=== PATIENT | male | born 1995 | race Caucasian/White ===

== ENCOUNTER 2023-09-07 20:02 | Emergency (ER) | payer OTHER, SELFPAY ==
--- NOTE | ~2023-09-07 | XR_ITS ---
EXAMINATION: XR CHEST CLINICAL INFORMATION: Chest pain COMPARISON: None available. TECHNIQUE: 2 views of the chest were obtained. FINDINGS: No significant abnormality is noted involving the heart, lungs, mediastinum or bony thorax. XR/XR chest 2V IMPRESSION: Unremarkable examination.
[2023-09-07 20:16] VITALS: BP 141/84; PULSE 108; RESP 18; TEMP 38.3; O2SAT 99; BMI 53.5
--- NOTE | 2023-09-07 20:16 | ECG_ITS ---
Test Reason : CHEST PAIN Blood Pressure : / mmHG Vent. Rate : 102 BPM Atrial Rate : 102 BPM P-R Int : 152 ms QRS Dur : 088 ms QT Int : 324 ms P-R-T Axes : 052 030 047 degrees QTc Int : 422 ms Sinus tachycardia Otherwise normal ECG No previous ECGs available Referred By: Omaira Martinez Electronically Signed By:MARZENA HUDSON
--- NOTE | 2023-09-07 20:16 | ED_ITS ---
HPI - General Adult General Chief complaint: Chest Pain Stated complaint: chest pains Time Seen by Provider: 09/07/23 23:29 Source: patient and family Mode of arrival: ambulatory Limitations: no limitations History of Present Illness HPI narrative: 27-year-old male with a history of obstructive sleep apnea and atrial fibrillation who presents emergency department for evaluation of rapid heart rate. Patient states that he developed a cold which she states consisted of a sore throat, rhinorrhea. Symptoms began yesterday. Today he states that he had a fever of 100 degrees F. he took he took long-acting Sudafed at 08:00 hours and did not take a 2nd dose. He states that at around 19:00 hours she walked down stairs and developed a fast heart rate. Patient has a smart watch he states that his heart rate was 130 and the highest that he documented was 150. He states that he then developed a tingly sensation in his left arm and then tingling in both fingers. He states that his tongue felt funny but he denied perioral numbness. Patient states that since being in the emergency department his heart rate is been a above 100. Patient contacted his sister who is a pediatric psychiatrist and she advised him to go to the emergency department to be evaluated for his symptoms. Patient does take metoprolol ER 50 mg daily. He states that he was not feeling well this morning he is uncertain if he took his morning dose. Related Data Home Medications Medication Instructions Recorded Confirmed metoprolol succinate 50 mg 50 mg PO DAILY 10/20/22 tablet,extended release 24 hr Previous Rx's Medication Instructions Recorded azithromycin 250 mg tablet See Rx Instructions PO .COMPLEX #6 10/20/22 tabs Allergies Allergy/AdvReac Type Severity Reaction Status Date / Time No Known Allergies Allergy Verified 09/07/23 20:16 Review of Systems 2 Review of Systems: Yes all other systems are reviewed and are negative [facility] Past Medical History [facility] Narrative: Past medical history: Obstructive sleep apnea, atrial fibrillation requiring cardioversion in the past. Social history: He denies tobacco use. He states that he rarely drinks alcohol and has not drank alcohol recently. He denies drug use. Social History Social History Patient Tobacco Use Status: Never used Tobacco Advance Directives: No Advance Directives Information Provided: No Physical Exam ED Vital Signs: Vital Signs - 24 hr 02/27/24 20:16 09/08/23 00:00 09/08/23 00:22 Temperature 101.0 F H 99.2 F Pulse Rate 108 H 92 Pulse Rate [Monitor] 95 Respiratory Rate 18 20 Blood Pressure 141/84 H 148/94 H Pulse Oximetry 99 100 Oxygen Delivery Method Room Air Room Air BMI result Body Mass Index 53.5 Vital signs revealed an elevated temperature of a 101 degrees F, elevated heart rate of 108 elevated blood pressure 141/84. Exam: General: Awake, alert in no distress, elevated BMI 53. 5, 194 kg Head: Normocephalic, atraumatic EENT: PERRL, Lids normal, sclera normal, conjunctiva normal, nose normal , ears normal, throat without erythema or exudates Neck: Supple, no adenopathy Lung: breath sounds symmetric, no wheezing, rales or rhonchi Chest: symmetric movement, nontender Heart: Tachycardic with regular rhythm, normal S1, S2 no murmurs or rubs Abdomen: soft, non-tender, nondistended, normal bowel sounds Back: no vertebral tenderness, no CVAT Extremities: no deformities, moves all extremities symmetrically Neuro: Awake, alert, oriented, normal speech, cranial nerves intact, moves all extremities symmetrically Psych: Pleasant, cooperative Course Course Course Narrative: This is a rapid medical exam: Additional HPI, ROS, PE not included below will be deferred to primary provider. Patient is a 27-year-old male with history of afib on metoprolol presenting to the ED with complaint of tachycardia, chest pain, URI symptoms. Reports HR was around 115-130 [employer]. Took pseudoephedrine at 8 this morning for his cold symptoms. HR in triage 106. Plan: EKG, labs, viral swabs, cxr Medications Administered Discontinued Medications Generic Name Dose Route Start Last Admin Trade Name Freq PRN Reason Stop Dose Admin Acetaminophen 975 mg 09/08/23 00:16 09/08/23 00:34 Acetaminophen 325 Mg Tablet PO 09/08/23 00:17 975 mg ONCE STA Administration Metoprolol Succinate 50 mg 09/08/23 00:03 09/08/23 00:34 Metoprolol Succinate Er 50 Mg Tab.Er.24h PO 09/08/23 00:04 50 mg ONCE ONE Administration Protocol Medical Decision Making Medical Decision Making MDM Narrative: 27-year-old male with a history of atrial fibrillation, obstructive sleep apnea who presents emergency department for evaluation of URI type symptoms x2 days with fever today with rapid heart rate with onset around 19:00 hours after you walk down stairs. Patient also had numbness and tingling in his left arm and in both hands with tingly sensation in his tongue but no perioral numbness. Patient has a smart watch and states that his highest heart rate that he documented was 150 and since being in the emergency department his heart rates been over 100. Differential diagnosis: ?Includes but is not limited to myocardial infarction, myocardial ischemia, palpitations, paroxysmal atrial fibrillation, electrolyte abnormalities, anemia Following evaluation was ordered: CBC, CMP, PT/INR, troponin, COVID-19, influenza, RSV, EKG Patient was initially treated with the following: Metoprolol succinate ER 50 mg orally, Tylenol 975 mg orally, cardiac monitoring, O2 saturation monitoring Course: 00:12 My interpretation patient's laboratory evaluation is as follows: CBC was normal. PT/INR was normal. Glucose elevated 142. ALT elevated 43. First troponin was less than 2.7. Chest x-ray revealed no acute abnormalities 12 EKG revealed a sinus tachycardia with no myocardial injury or ischemic pattern is noted. My impression is the patient's tachycardia may be secondary to fever and this triggered hyperventilation syndrome. I will repeat a 3 hour troponin to make sure that he has not had myocardial injury. Patient was given a dose of metoprolol ER 50 mg for his tachycardia. 01:55 Patient is feeling better after the above treatment, he has had no tachyarrhythmias noted on the monitor. Patient's symptoms are most likely secondary to viral syndrome and I did discuss this with him. Patient was advised to take a another dose of metoprolol at around noon time today and then to start taking his metoprolol again on his radiographs scheduled. He was given printed and verbal instructions and discharged home Admission/Observation Consideration of admission/observation: Escalation of care including admission/observation considered Lab Data [facility] Lab Attestation statement: I reviewed the patient's lab results. 09/07/23 20:33 09/07/23 20:33 Labs: Lab Results 09/07/23 09/07/23 09/08/23 Range/Units 20:32 20:33 00:27 WBC 10.1 (4.8-10.8) X10*3/uL RBC 5.05 (4.60-5.80) X10*6/uL Hgb 15.2 (14.0-18.0) g/dl Hct 44.0 (42.0-52.0) % MCV 87.1 (80.0-98.0) fL MCH 30.1 (27.0-33.0) pg MCHC 34.5 (31.0-36.0) g/dl RDW 12.7 (11.0-16.0) % Plt Count 282 (160-400) X10*3/uL MPV 9.0 L (9.4-12.4) fL Immature Gran % (Auto) 0.6 H (0.0-0.4) % Neut % (Auto) 78.8 H (45-73) % Lymph % (Auto) 10.7 L (20-40) % [place] % (Auto) 8.7 (2-11) % Eos % (Auto) 0.7 (0-4) % Baso % (Auto) 0.5 (0-2) % Lymph # (Auto) 1.1 L (1.2-4.9) X10*3/uL [place] # (Auto) 0.9 (0.1-1.2) X10*3/uL Eos # (Auto) 0.1 (0.0-0.4) X10*3/uL Baso # (Auto) 0.1 (0.0-0.2) X10*3/uL Abs Immat Gran (auto) 0.06 H (0.00-0.03) X10*3/uL Absolute Neuts (auto) 7.9 (2.0-8.3) x10*3/uL Absolute Nucleated RBC 0.000 (0.0-0.012) X10*3/uL Nucleated RBC % (auto) 0.0 (0.0-0.2) /100WBC PT 12.7 (11.1-13.3) SEC INR 1.0 (0.9-1.1) Sodium 138 (135-145) mmol/L Potassium 3.7 (3.3-5.1) mmol/L Chloride 103 (96-108) mmol/L Carbon Dioxide 25 (22-29) mmol/L Anion Gap 14 (12-20) BUN 9 (9-16) mg/dL Creatinine 1.06 (0.5-1.4) mg/dL Estim Creat Clear Calc 188.2 Estimated GFR > 60 Random Glucose 146 H (60-115) mg/dL Calcium 10.0 (8.4-10.2) mg/dL Total Bilirubin 0.4 (0.0-1.0) mg/dL AST 24 (5-37) U/L ALT 43 H (0-40) U/L Alkaline Phosphatase 71 (39-117) U/L Troponin I High Sens < 2.7 < 2.7 (<3.5-35.0) ng/L Total Protein 7.8 (6.5-8.0) g/dL Albumin 4.1 (3.5-5.0) g/dL Influenza Type A (PCR) NEGATIVE (Negative) Influenza Type B (PCR) NEGATIVE (Negative) RSV RNA Qual (PCR) NEGATIVE (Negative) SARS-CoV-2 RNA (RT-PCR) NEGATIVE (Negative) Independent Interpretation I performed an independent interpretation of an: EKG and Plain X-Ray Interpretation: My interpretation patient's 12 EKG done at 20:24 hours is as follows: Sinus tachycardia with a rate of 102, normal IL interval, QRS duration QTC interval, no ST segment elevation, no ST segment depression, no PACs, no PVCs, no T-wave abnormalities except for the sinus tachycardia this is a normal EKG. Radiology Impression Discussion of test interpretation with radiology: I have reviewed the radiologist's reading. Radiologist Impression: XR chest 2V IMPRESSION: Unremarkable examination. Dictated By: Gerardo Johnson MD Independent Historian Clinical information obtained from an independent historian. History obtained from or confirmed by: Other (Significant other) Chronic Conditions Patient?s care impacted by: Other (Obstructive sleep apnea, paroxysmal atrial fibrillation) Discharge Plan Discharge Clinical Impression: Heart palpitations, Atrial tachycardia, Viral syndrome, Fever Patient Disposition: Home, Self-Care Instructions: Viral Syndrome (ED), Heart Palpitations (ED), Hyperventilation (ED) Additional Instructions: When you arrived in the emergency department you did have a fever of 101 degrees F, your repeat temperature when I saw you was still slightly high at 99.2. Your 12 EKG was normal. Your chest x-ray was normal. Your complete blood count and comprehensive metabolic panel were unremarkable. Your high sensitive troponin I initially was below detectable limits and the repeat test 3 hours later was also below detectable limits which is reassuring suggesting that you did not have any heart damage or heart attack as the cause of your symptoms. Your symptoms are most likely caused by a viral infection which may have also trigger hyperventilation syndrome. You were treated with Tylenol 975 mg orally and metoprolol ER 50 mg orally. Take your next dose of metoprolol ER 50 mg at around noon today and then take tomorrow's dose that your usual time that you take your medicine. Follow-up with your doctor in 2 days. Please return to the emergency department if your symptoms get worse or if you develop any symptoms that are concerning to you. Prescriptions: No Action metoprolol succinate 50 mg tablet extended release 24 hr 50 mg PO DAILY azithromycin 250 mg tablet See Rx Instructions PO .COMPLEX Qty: 6 0RF Rx Instructions: take 500 mg today (day 1), then 250 mg for 4 days (days 2-5) PO
[2023-09-07 20:38] LABS: MANUAL DIFF FLAG NO
[2023-09-07 20:39] LABS: Basophils Absolute Auto 0.1 X10*3/uL (0.0-0.2); Basophils Percent Auto 0.5 % (0-2); Eosinophils Absolute Auto 0.1 X10*3/uL (0.0-0.4); Eosinophils Percent Auto 0.7 % (0-4); Hemoglobin 15.2 g/dl (14.0-18.0); Imm Gran Abs Auto 0.06 X10*3/uL (0.00-0.03); Imm Gran Pct Auto 0.6 % (0.0-0.4); Lymphocytes Absolute Auto 1.1 X10*3/uL (1.2-4.9); Lymphocytes Percent Auto 10.7 % (20-40); Mean Corpuscular HGB Conc 34.5 g/dl (31.0-36.0); Mean Corpuscular Hemoglobin 30.1 pg (27.0-33.0); Mean Corpuscular Volume 87.1 fL (80.0-98.0); Monocytes Absolute Auto 0.9 X10*3/uL (0.1-1.2); Monocytes Percent Auto 8.7 % (2-11); Neutrophils Absolute Auto 7.9 x10*3/uL (2.0-8.3); Neutrophils Percent Auto 78.8 % (45-73); Platelet Count 282 X10*3/uL (160-400); Red Blood Count 5.05 X10*6/uL (4.60-5.80); Red Cell Distribution Width 12.7 % (11.0-16.0); White Blood Count 10.1 X10*3/uL (4.8-10.8)
[2023-09-07 20:45] LABS: Prothrombin Time 12.7 SEC (11.1-13.3)
[2023-09-07 20:57] LABS: Alanine Aminotransferase 43 U/L (0-40); Albumin Level 4.1 g/dL (3.5-5.0); Alkaline Phosphatase 71 U/L (39-117); Anion Gap 14 (12-20); Aspartate Amino Transferase 24 U/L (5-37); Bilirubin Total 0.4 mg/dL (0.0-1.0); Blood Urea Nitrogen 9 mg/dL (9-16); Carbon Dioxide 25 mmol/L (22-29); Chloride 103 mmol/L (96-108); Creatinine Clr Calc Pharmacy 188.2; Estimated Glomerular Filt Rate > 60; Glucose Random 146 mg/dL (60-115); Potassium 3.7 mmol/L (3.3-5.1); Sodium 138 mmol/L (135-145); Total Protein 7.8 g/dL (6.5-8.0)
[2023-09-07 21:04] LABS: Troponin-I High Sensitivity < 2.7 ng/L (<3.5-35.0)
[2023-09-07 21:15] LABS: Influenza A PCR NEGATIVE (Negative); Influenza B PCR NEGATIVE (Negative); Resp Syncy Virus RNA Qual PCR NEGATIVE (Negative); SARS COV2 PCR INHOUSE NEGATIVE (Negative)
[2023-09-08] VITALS: BP 148/94; PULSE 92; RESP 20; TEMP 37.3; O2SAT 100
[2023-09-08 00:22] VITALS: PULSE 95
[2023-09-08] MEDS: Metoprolol Succinate ER 50 MG TAB.ER.24H PO (00:34)
[2023-09-08] MEDS: Acetaminophen 325 MG TABLET 975 MG PO (00:34)
[2023-09-08 01:10] LABS: Troponin-I High Sensitivity < 2.7 ng/L (<3.5-35.0)
== END 2023-09-08 02:29 | disposition home or self-care (01) ==
PROVIDERS: Registered Nurse Emergency; Emergency Provider Emergency Medicine Emergency Medical Services
DX: B34.9 Viral infection, unspecified (principal); R07.89 Other chest pain; R00.0 Tachycardia, unspecified; G47.33 Obstructive sleep apnea (adult) (pediatric); I48.91 Unspecified atrial fibrillation; R50.9 Fever, unspecified; Z11.52 Encounter for screening for COVID-19; Z20.822 Contact with and (suspected) exposure to COVID-19; Z79.01 Long term (current) use of anticoagulants; Z79.899 Other long term (current) drug therapy
CPT/HCPCS: 0241U; 36415; 71046; 80053; 84484; 85025; 85610; 93005; 99284; 99285

== ENCOUNTER → 2023-09-07 20:16 | Outpatient (BNV) | payer OTHER, SELFPAY | PROVIDERS: Emergency Provider Emergency Medicine Emergency Medical Services; Visit Provider Internal Medicine | DX: R00.0 Tachycardia, unspecified (principal) | CPT/HCPCS: 93010 ==